=== PATIENT | male | born 1950 | race Two or more races ===

== ENCOUNTER 2018-06-24 15:18 | Inpatient (IN) | payer MEDICARE, MEDICAID ==
[~2018-06-24] VITALS: Ht 162.6 cm; Wt 78.6 kg
--- NOTE | 2018-06-24 15:32 | NUR ---
PT NILSON Henao From [facility] c/o weakness x2days, PT IS AAOX3, NOT IN RESPIRATORY DISTRESS, KEPT RESTEDA ND COMFORTABLE, WILL CONTINUE TO MONITOR.
[2018-06-24 15:53] LABS: BASOPHILS % (AUTO) 0.3 % (0.0-2.0); EOSINOPHILS % (AUTO) 5.7 % (0.0-6.0); HEMATOCRIT 40 % (39-51); HEMOGLOBIN 13.9 g/dL (13.5-17.5); LYMPHOCYTES # (AUTO) 1.2 /CMM (0.8-4.8); LYMPHOCYTES % (AUTO) 10.2 % (20.0-44.0); MEAN CORPUSCULAR HGB CONC 35 g/dl (31.0-36.0); MEAN CORPUSCULAR VOLUME 93 fL (80-96); MONOCYTES # (AUTO) 0.6 /CMM (0.1-1.30); MONOCYTES % (AUTO) 5.2 % (2.0-12.0); NEUTROPHILS % (AUTO) 78.6 % (43.0-81.0); PLATELET COUNT (AUTO) 248 /CMM (150-450); RED BLOOD CELL COUNT(AUTO) 4.36 MIL/uL (4.5-6.0); WHITE BLOOD COUNT (AUTO) 11.5 K/uL (4.3-11.0)
--- NOTE | 2018-06-24 15:55 | NUR ---
PT IS WHEELD TO CT SCAN.
--- NOTE | 2018-06-24 16:21 | NUR ---
PT IS BACK FOR THE CT SCAN.
[2018-06-24 16:22] LABS: CALCIUM, SERUM 8.8 mg/dL (8.5-10.1); CARBON DIOXIDE 31 mmol/L (21-32); CHLORIDE 96 mmol/L (98-107); GLUCOSE 137 mg/dL (74-106); POTASSIUM 3.2 mmol/L (3.5-5.1); SODIUM SERUM 133 mmol/L (136-145); UREA NITROGEN, BLOOD 12 mg/dL (7-18)
[2018-06-24] MEDS ORDERED: POTASSIUM CHLORIDE 20 MEQ TAB.PRT.SR PO ONE ×2 (17:00→17:03)
[2018-06-24] MEDS ORDERED: MINO2.5T PO (17:15)
[2018-06-24] MEDS ORDERED: LEVE250T2 PO (17:15)
[2018-06-24] MEDS ORDERED: GLIP10TA11 PO (17:15)
[2018-06-24] MEDS ORDERED: BENA20TA9 PO (17:15)
[2018-06-24] MEDS ORDERED: BLOO-668 IN (17:15)
[2018-06-24] MEDS ORDERED: ASPI-992 PO (17:15)
[2018-06-24] MEDS ORDERED: CLON0.1T PO (17:15)
--- NOTE | 2018-06-24 17:43 | NUR ---
URINE COLLECTED AND SENT TO LAB.
--- NOTE | 2018-06-24 17:48 | NUR ---
DR. BAKER AT BEDSIDE FOR EVAL.
[2018-06-24] MEDS ORDERED: IV NS 0.9% 1,000 ML IV PRN (17:59)
[2018-06-24] MEDS ORDERED: ZOLPIDEM TARTRATE 5 MG TABLET PO PRN (18:00)
[2018-06-24] MEDS ORDERED: DEXTROSE 50%-WATER 50 ML DISP.SYRIN IV PRN (18:00)
[2018-06-24] MEDS ORDERED: INSULIN REGULAR, HUMAN 100 UNIT/ML 3 ML VIAL SQ PRN (18:00)
[2018-06-24] MEDS ORDERED: BLOOD SUGAR DIAGNOSTIC 1 EACH STRIP IN SCH (18:00)
[2018-06-24] MEDS ORDERED: HYDROCODONE/APAP 5/325MG 1 EACH TABLET PO PRN (18:00)
[2018-06-24] MEDS ORDERED: MAGNESIUM HYDROXIDE 30 ML UDC PO PRN (18:00)
[2018-06-24] MEDS ORDERED: MAG HYDROX/AL HYDROX/SIMETH 30 ML UDC PO PRN (18:00)
[2018-06-24] MEDS ORDERED: *INSULIN REGULAR(HUMULIN R)HUM 100 UNIT/ML VIAL SQ PRN (18:00)
[2018-06-24] MEDS ORDERED: ONDANSETRON HCL/PF 4 MG/2 ML VIAL IVP PRN (18:00)
[2018-06-24] MEDS ORDERED: ACETAMINOPHEN 325 MG TABLET PO PRN (18:00)
[2018-06-24] MEDS ORDERED: Z GUARD REMEDY 2 OZ OINT TP PRN (18:00)
[2018-06-24 18:21] LABS: APPEARANCE,URINE CLEAR (CLEAR); BILIRUBIN,URINE NEGATIVE (NEGATIVE); BLOOD, URINE TRACE-INTA Ery/uL (NEGATIVE); COLOR,URINE YELLOW (YELLOW); KETONES,URINE NEGATIVE (NEGATIVE); LEUKOCYTE ESTERASE ,URINE NEGATIVE (NEGATIVE); NITRITE, URINE NEGATIVE (NEGATIVE); PH,URINE 6.5 (5.0-8.0); PROTEIN,URINE NEGATIVE (NEGATIVE); UGLUCOSE NEGATIVE (NEGATIVE); UROBILINOGEN,URINE 0.2 EU/dL (0.2)
[2018-06-24 18:34] LABS: BACTERIA,URINE Rare /HPF (None Seen); RBC,URINE 0-2 /HPF (0-2); SQUAMOUS EPITHELIAL CELL,UR None Seen /HPF (None Seen); WBC,URINE NONE SEEN /HPF (0-3)
--- NOTE | 2018-06-24 18:40 | NUR ---
ENDORSED TO TAYLOR HERNADEZ FOR CORAZON.
--- NOTE | 2018-06-24 19:35 | NUR ---
TELE/RN NOTES RECEIVED PT. FROM ER VIA [facility]. PT. IS AWAKE, ALERT AND ORIENTED X3. BREATHING EVEN AND UNLABORED ON ROOM AIR. NO SOB, RESPIRATORY DISTRESS OR COMPLAINTS OF PAIN NOTED AT THIS TIME. ORIENTED PT. TO ROOM. PLACED EXTERNAL TRAINING LEAD ON PT. CURRENT RHYTHM = SINUS RHYTHM HR 68. PT. WITH RIGHT AC 20 GAUGE IV SALINE LOCK PRESENT, PATENT AND INTACT. BED LOCKED AND IN LOWEST POSITION, SIDE RAILS UP X3, BED ALARM ON, CALL LIGHT WITHIN REACH, WILL CONTINUE TO MONITOR.
[2018-06-24 20:00] VITALS: BP 159/82
[2018-06-24] MEDS: LEVETIRACETAM (250 MG) 250 MG TABLET PO SCH (20:57)
[2018-06-24] MEDS: MINOXIDIL (2.5MG) 2.5 MG TABLET PO SCH (20:57)
[2018-06-24] MEDS: BLOOD SUGAR DIAGNOSTIC 1 EACH STRIP VI SCH (21:17)
[2018-06-25] VITALS: BP 158/79
[2018-06-25 04:00] VITALS: BP 154/75
--- NOTE | 2018-06-25 06:13 | NUR ---
TELE/RN NOTES PT. IS LYING IN BED RESTING. BREATHING EVEN AND UNLABORED ON ROOM AIR. NO SOB, RESPIRATORY DISTRESS OR COMPLAINTS OF PAIN NOTED AT THIS TIME. PT. WITH EXTERNAL OFFICE EMPLOYEE ON PT. CURRENT RHYTHM = SINUS RHYTHM HR 77. PT. WITH RIGHT AC 20 GAUGE PERIPHERAL IV PRESENT, PATENT AND INTACT ADMINISTERING TO PT. NS @ 75 ML/HR. ALL PT. NEEDS MET. BED LOCKED AND IN LOWEST POSITION, SIDE RAILS UP X3, BED ALARM ON, CALL LIGHT WITHIN REACH, WILL ENDORSE TO DAYSHIFT NURSE FOR CONTINUITY OF CARE.
[2018-06-25 06:39] LABS: BASOPHILS % (AUTO) 0.2 % (0.0-2.0); EOSINOPHILS % (AUTO) 6.5 % (0.0-6.0); HEMATOCRIT 40 % (39-51); HEMOGLOBIN 13.9 g/dL (13.5-17.5); LYMPHOCYTES # (AUTO) 1.1 /CMM (0.8-4.8); LYMPHOCYTES % (AUTO) 11.4 % (20.0-44.0); MEAN CORPUSCULAR HGB CONC 35 g/dl (31.0-36.0); MEAN CORPUSCULAR VOLUME 92 fL (80-96); MONOCYTES # (AUTO) 0.6 /CMM (0.1-1.30); MONOCYTES % (AUTO) 5.9 % (2.0-12.0); NEUTROPHILS # (AUTO) 7.3 /CMM (1.8-8.9); PLATELET COUNT (AUTO) 234 /CMM (150-450); RED BLOOD CELL COUNT(AUTO) 4.39 MIL/uL (4.5-6.0); WHITE BLOOD COUNT (AUTO) 9.6 K/uL (4.3-11.0)
[2018-06-25] MEDS: BLOOD SUGAR DIAGNOSTIC 1 EACH STRIP VI SCH ×4 (06:41→21:17)
[2018-06-25 07:06] LABS: CALCIUM, SERUM 7.8 mg/dL (8.5-10.1); MAGNESIUM 2.1 mg/dL (1.8-2.4); PHOSPHORUS 3.1 mg/dL (2.5-4.9); POTASSIUM 3.4 mmol/L (3.5-5.1)
--- NOTE | 2018-06-25 07:55 | NUR ---
EMERGENCY ROOM CLINICIAN NOTES PATIENT RECEIVED RESTING INSIDE ROOM. AWAKE, ALERT AND ORIENTED. VERBALLY RESPONSIVE AND RESPONDS TO VERBAL AND TACTILE STIMULI. BREATHING EVEN AND UNLABORED. DENIES ANY PAIN OR DISCOMFORT. PATIENT ON TELEMETRY, BRINELL TESTER IN PLACE. SR AT 73 BPM. IV INTACT AND PATENT. WILL CONTINUE TO MONITOR. BED LOCKED AND IN LOW POSITION. BILATERAL UPPER SIDE RAILS UP AND LOCKED. CALL LIGHT WITHIN EASY REACH
[2018-06-25 08:00] VITALS: BP 149/89
[2018-06-25] MEDS ORDERED: POTASSIUM CHLORIDE 20 MEQ TAB.PRT.SR PO ONE (08:00)
[2018-06-25] MEDS ORDERED: BENAZEPRIL HCL 20 MG TABLET PO SCH (09:00)
[2018-06-25] MEDS: glipiZIDE 10 MG TABLET PO SCH (09:07)
[2018-06-25] MEDS: ASPIRIN 325 MG TABLET PO SCH (09:07)
[2018-06-25] MEDS: LEVETIRACETAM (250 MG) 250 MG TABLET PO SCH ×2 (09:07→21:16)
[2018-06-25] MEDS: MINOXIDIL (2.5MG) 2.5 MG TABLET PO SCH ×2 (09:07→21:17)
[2018-06-25 16:00] VITALS: BP 149/65
[2018-06-25] MEDS: BENAZEPRIL HCL 20 MG TABLET PO SCH (16:58)
--- NOTE | 2018-06-25 18:12 | NUR ---
MS RN NOTES PATIENT RESTING INSIDE ROOM. AWAKE, ALERT AND ORIENTED WITH PERIODS OF FORGETFULNESS. PATIENT REORIENTED NEEDED. BREATHING EVEN AND UNLABORED. NO SOB OR ACUTE DISTRESS. DENIES ANY PAIN OR DISCOMFORT. NO CHANGES IN LOC. IV INTACT AND PATENT. PATIENT KEPT CLEAN, DRY AND COMFORTABLE. WILL ENDORSE TO INCOMING SHIFT FOR CORAZON. BED LOCKED AND IN LOW POSITION. BILATERAL UPPER SIDE RAILS UP AND LOCKED. CALL LIGHT WITHIN EASY REACH
[2018-06-25 20:00] VITALS: BP 169/80
[2018-06-26] MEDS: BLOOD SUGAR DIAGNOSTIC 1 EACH STRIP VI SCH ×4 (05:47→21:13)
--- NOTE | 2018-06-26 06:18 | NUR ---
MS RN NOTES AWAKE & RESPONSIVE. NOT IN ANY DISTRESS. NO SOB NOTED. DENIES ANY PAIN OR DISCOMFORT AT THIS TIME. WITH IV-HL PATENT & INTACT. MONITORED ACCORDINGLY. CALL LIGHT WITHIN REACH. BED IN LOWEST POSITION. SR UP X 2 FOR SAFETY. WILL ENDORSE TO NEXT SHIFT.
[2018-06-26 06:26] LABS: BASOPHILS % (AUTO) 0.3 % (0.0-2.0); EOSINOPHILS % (AUTO) 7.3 % (0.0-6.0); HEMATOCRIT 39 % (39-51); HEMOGLOBIN 13.4 g/dL (13.5-17.5); LYMPHOCYTES # (AUTO) 1.2 /CMM (0.8-4.8); LYMPHOCYTES % (AUTO) 13.2 % (20.0-44.0); MEAN CORPUSCULAR HGB CONC 34 g/dl (31.0-36.0); MEAN CORPUSCULAR VOLUME 93 fL (80-96); MONOCYTES # (AUTO) 0.6 /CMM (0.1-1.30); MONOCYTES % (AUTO) 6.5 % (2.0-12.0); NEUTROPHILS # (AUTO) 6.5 /CMM (1.8-8.9); NEUTROPHILS % (AUTO) 72.7 % (43.0-81.0); PLATELET COUNT (AUTO) 224 /CMM (150-450); RED BLOOD CELL COUNT(AUTO) 4.21 MIL/uL (4.5-6.0); WHITE BLOOD COUNT (AUTO) 8.9 K/uL (4.3-11.0)
[2018-06-26 06:47] LABS: CALCIUM, SERUM 8.4 mg/dL (8.5-10.1); CREATININE 0.9 mg/dL (0.6-1.3); MAGNESIUM 2.1 mg/dL (1.8-2.4); PHOSPHORUS 3.2 mg/dL (2.5-4.9); POTASSIUM 3.7 mmol/L (3.5-5.1)
--- NOTE | 2018-06-26 07:39 | NUR ---
MS RN OPENING NOTES RECEIVED PATIENT IN STABLE CONDITION. IN NO APPARENT DISTRESS. BEDSIDE RAILS ARE UPX2. BED IS LOCKED AND LOWERED. CALL LIGHT IS WITHIN REACH. IV LINE IS INTACT AND PATENT. WILL CONTINUE TO MONITOR PATIENT.
[2018-06-26 08:00] VITALS: BP 162/73
[2018-06-26] MEDS: ASPIRIN 325 MG TABLET PO SCH (08:06)
[2018-06-26] MEDS: glipiZIDE 10 MG TABLET PO SCH (08:06)
[2018-06-26] MEDS: BENAZEPRIL HCL 20 MG TABLET PO SCH ×2 (08:07→17:12)
[2018-06-26] MEDS: LEVETIRACETAM (250 MG) 250 MG TABLET PO SCH ×2 (08:07→21:12)
[2018-06-26] MEDS: MINOXIDIL (2.5MG) 2.5 MG TABLET PO SCH ×2 (08:22→21:13)
--- NOTE | 2018-06-26 11:20 | NUR ---
AT 11:05 CHECKED PATIENTS BLOOD SUGAR. BLOOD SUGAR WAS 57. GAVE 15 GRAMS OF APPLE JUICE. RECHECKED PATIENTS BLOOD SUGAR AT 11:20. PATIENTS BLOOD SUGAR IS NOW 74. WILL CONTINUE TO MONITOR.
[2018-06-26 16:00] VITALS: BP 165/86
[2018-06-26] MEDS: CLONIDINE HCL 0.1 MG TABLET PO PRN (17:12)
--- NOTE | 2018-06-26 18:17 | NUR ---
MS RN CLOSING NOTES PATIENT IS IN STABLE CONDITION. IN NO APPARENT DISTRESS. BEDSIDE RAILS ARE UPX2. BED IS LOCKED AND LOWERED. CALL LIGHT IS WITHIN REACH. IV LINE IS INTACT AND PATENT. ALL NEEDS WERE MET. WILL ENDORSE CARE TO COMPOUNDING TECHNICIAN NURSE FOR CORAZON.
[2018-06-26 20:00] VITALS: BP 154/83
[2018-06-27] MEDS: BLOOD SUGAR DIAGNOSTIC 1 EACH STRIP VI SCH ×2 (06:09→12:05)
--- NOTE | 2018-06-27 07:30 | NUR ---
MS PAMELA RN NOTES RECEIVED PATIENT RESTING IN BED. AWAKE, ALERT AND ORIENTED WITH PERIODS OF FORGETFULNESS. PATIENT REORIENTED NEEDED. BREATHING EVEN AND UNLABORED. NO SOB OR SIGNS OF ACUTE DISTRESS. DENIES ANY PAIN OR DISCOMFORT.IV ACCESS ON HIS RIGHT AC G 20, INTACT AND PATENT. PATIENT KEPT CLEAN, DRY AND COMFORTABLE. SAFETY MEASURES OBSERVED, BED IN LOW LOCK POSITION, CALL LIGHT WITHIN EASY REACH. WILL CONTINUE TO MONITOR ACCORDINGLY.
[2018-06-27] MEDS: glipiZIDE 10 MG TABLET PO SCH (07:38)
[2018-06-27 08:00] VITALS: BP 141/83
[2018-06-27] MEDS: ASPIRIN 325 MG TABLET PO SCH (08:46)
[2018-06-27] MEDS: BENAZEPRIL HCL 20 MG TABLET PO SCH ×2 (08:47→17:00)
[2018-06-27] MEDS: MINOXIDIL (2.5MG) 2.5 MG TABLET PO SCH ×2 (08:47→15:50)
[2018-06-27] MEDS: LEVETIRACETAM (250 MG) 250 MG TABLET PO SCH (08:48)
[2018-06-27] MEDS ORDERED: BENA20TA9 PO (11:47)
[2018-06-27] MEDS ORDERED: MINO2.5T PO (11:47)
[2018-06-27] MEDS: CLONIDINE HCL 0.1 MG TABLET PO PRN (14:53)
[2018-06-27] MEDS ORDERED: CLONIDINE HCL 0.1 MG TABLET PO ONE (15:50)
[2018-06-27 15:51] VITALS: BP 166/84
--- NOTE | 2018-06-27 16:03 | NUR ---
RN NOTES NOTED PATIENT'S BP 162/69MMHG, PRN CLONIDINE 0.1MG PO GIVEN ORDERED. RECHECKED BP AFTER 30 MINUTES, BP 166/84MMHG. CALLED [facility], IF OK TO TRANSFER AND WILL ACCEPT PATIENT. [facility], PATIENTS' BP SHOULD BE BELOW 160 BEFORE THEY CAN ACCEPT PATIENT. INFORMED DR. MOLINA, WITH ORDERS TO GIVE ONE TIME DOSE OF CLONIDINE 0.2MG PO AND TO GIVE MINOXIDIL 2.5 MG PO. ORDERS NOTED AND CARRIED OUT. WILL CONTINUE TO MONITOR.
--- NOTE | 2018-06-27 16:47 | NUR ---
HIDES INSPECTOR NOTES RECHECKED PATIENTS' BP 151/71 MMHG, NO COMPLAINTS OF PAIN OR DISCOMFORT, NO DIZZINESS, O2SAT 97%. WILL GO TO [facility] WITH 2 EMT's. REPORT GIVEN TO [facility] NURSE SONIA. PATIENT LEFT THE UNIT AT 16:30 IN STABLE CONDITION, VIA GURNEY. ALL NEEDS ATTENDED AND MET.
[2018-06-28] MEDS ORDERED: glipiZIDE 5 MG TABLET PO SCH (07:30)
== END 2018-06-27 16:20 | DRG 640 ==
LOC: ER 15:20 → TELE 19:03 → MED 06-25 09:21
PROVIDERS: ADMIT Internal Medicine; ATTEND Internal Medicine
DX: E86.0 Dehydration (principal); G93.41 Metabolic encephalopathy; R65.10 Systemic inflammatory response syndrome (SIRS) of non-infectious origin without acute organ dysfunction; I69.354 Hemiplegia and hemiparesis following cerebral infarction affecting left non-dominant side; E87.1 Hypo-osmolality and hyponatremia; I16.0 Hypertensive urgency; G40.909 Epilepsy, unspecified, not intractable, without status epilepticus; Z87.820 Personal history of traumatic brain injury; E87.6 Hypokalemia; E86.1 Hypovolemia; D72.829 Elevated white blood cell count, unspecified; E78.5 Hyperlipidemia, unspecified; E11.9 Type 2 diabetes mellitus without complications; I10 Essential (primary) hypertension; K21.9 Gastro-esophageal reflux disease without esophagitis; Z79.84 Long term (current) use of oral hypoglycemic drugs
CPT/HCPCS: 36415; 70450-TC; 71045-TC; 80048-TC; 80061-TC; 81000-TC; 82962-TC; 83735-TC; 84100-TC; 84439-TC; 84443-TC; 84484-TC; 85025-TC; 85730-TC; 87081-TC; 87400; A4606; G0378; J1815; J7030; Z7610